=== PATIENT | female | born 1955 | race Caucasian/White ===

== ENCOUNTER 2024-01-20 11:16 | Inpatient (IN) | payer MEDICAID ==
[~2024-01-20] VITALS: Ht 154.9 cm; Wt 64.9 kg
[2024-01-20 11:23] VITALS: BP_SYST 93; PULSE 105; RESP 18; TEMP 98.3; O2SAT 95
[2024-01-20 11:49] LABS: BILIRUBIN,URINE NEGATIVE (NEGATIVE); BLOOD, URINE 2+ (NEGATIVE); COLOR,URINE YELLOW (YELLOW); GLUCOSE,URINE NEGATIVE (NEGATIVE); KETONES,URINE TRACE (NEGATIVE); LEUKOCYTE ESTERASE ,URINE 1+ (NEGATIVE); NITRITE, URINE NEGATIVE (NEGATIVE); PROTEIN URINE 2+ (NEGATIVE); UROBILINOGEN,URINE 0.2 (0.2-1.0)
[2024-01-20 11:50] LABS: CLARITY/URINE SLIGHTLY HAZY (CLEAR)
[2024-01-20] MEDS: NACL 0.9% 1,000 ML IV ONE ×2 (11:50→15:18)
[2024-01-20 11:53] LABS: BASOPHILS % (AUTO) 0.1 % (0.0-2.0); EOSINOPHILS # (AUTO) 0.1 K/uL (0.0-0.4); EOSINOPHILS % (AUTO) 0.5 % (0.0-4.0); HEMATOCRIT 34.7 % (36-48); HEMOGLOBIN 11.9 g/dL (12.0-16.0); LYMPHOCYTES # (AUTO) 0.7 K/uL (1.0-5.5); LYMPHOCYTES % (AUTO) 6.3 % (20.5-51.5); MEAN CORPUSCULAR HEMOGLOBIN 30 pg (27-31); MEAN CORPUSCULAR HGB CONC 34 % (32-36); MEAN CORPUSCULAR VOLUME 88 fL (79.0-98.0); MONOCYTES # (AUTO) 0.8 K/uL (0.0-1.0); NEUTROPHILS # (AUTO) 10.3 K/uL (1.8-7.7); NEUTROPHILS % (AUTO) 86.1 % (40.0-70.0); PLATELET COUNT (AUTO) 143 K/uL (130-430); RED BLOOD CELL COUNT(AUTO) 3.93 MIL/uL (4.2-6.2); RED CELL DISTRIBUTION WIDTH 15.7 % (9.0-15.0); WHITE BLOOD COUNT (AUTO) 11.9 K/uL (4.8-10.8)
[2024-01-20] MEDS: MORPHINE 2 MG/ML INJ. SYRINGE IVP ONE (11:53)
[2024-01-20] MEDS: ONDANSETRON HCL 4 MG/2 ML VIAL IVP ONE (11:54)
[2024-01-20 12:11] LABS: BACTERIA,URINE FEW /HPF (None Seen); URINE AMORPHOUS URATE 1+ /HPF (None Seen)
[2024-01-20 12:12] LABS: FINE GRANULAR CASTS,URINE 0-1 /LPF (None Seen)
[2024-01-20 12:25] LABS: ALBUMIN 2.4 g/dL (3.4-4.8); BILIRUBIN,DIRECT 0.5 mg/dL (0.0-0.3); CALCIUM 8.6 mg/dL (8.4-11.0); CREATININE 3.4 mg/dL (0.55-1.30); POTASSIUM 3.4 mmol/L (3.5-5.1); TOTAL BILIRUBIN 0.9 mg/dL (0.0-1.0); TOTAL PROTEIN, SERUM 6.6 g/dL (6.4-8.3)
[2024-01-20] MEDS ORDERED: cefTRIAXone 1 GM VIAL ONE ×2 (13:34)
[2024-01-20] MEDS: cefTRIAXone 1 GM in D5W 50 ML IV ONE (13:55)
[2024-01-20] MEDS ORDERED: OMEP20CA15 PO (14:43)
[2024-01-20] MEDS ORDERED: ONDANSETRON HCL 4 MG/2 ML VIAL IVP PRN (15:00)
[2024-01-20] MEDS: PANTOPRAZOLE SODIUM 40 MG/VIAL (PROTONIX) IVP ONE (15:42)
[2024-01-20] MEDS: ACETAMINOPHEN 650 MG/20.3 ML UDC PO PRN (17:43)
[2024-01-20 17:53] LABS: CALCIUM 8.7 mg/dL (8.4-11.0); CREATININE 3.04 mg/dL (0.55-1.30); POTASSIUM 3.6 mmol/L (3.5-5.1)
[2024-01-20] MEDS: NACL 0.9% 1,000 ML IV SCH (18:30)
[2024-01-21] VITALS (8 sets, daily range): BP systolic 120–151; PULSE 85–100; RESP 16–20; TEMP 97–100; O2SAT 95–99
[2024-01-21 06:32] LABS: BASOPHILS % (AUTO) 0.1 % (0.0-2.0); EOSINOPHILS # (AUTO) 0.1 K/uL (0.0-0.4); EOSINOPHILS % (AUTO) 1.3 % (0.0-4.0); HEMATOCRIT 29.5 % (36-48); HEMOGLOBIN 9.9 g/dL (12.0-16.0); LYMPHOCYTES # (AUTO) 0.9 K/uL (1.0-5.5); LYMPHOCYTES % (AUTO) 10.1 % (20.5-51.5); MEAN CORPUSCULAR HEMOGLOBIN 30 pg (27-31); MEAN CORPUSCULAR HGB CONC 34 % (32-36); MEAN CORPUSCULAR VOLUME 90 fL (79.0-98.0); MONOCYTES % (AUTO) 11.1 % (1.7-9.3); NEUTROPHILS % (AUTO) 77.4 % (40.0-70.0); PLATELET COUNT (AUTO) 130 K/uL (130-430); RED BLOOD CELL COUNT(AUTO) 3.27 MIL/uL (4.2-6.2); RED CELL DISTRIBUTION WIDTH 15.8 % (9.0-15.0); WHITE BLOOD COUNT (AUTO) 9.1 K/uL (4.8-10.8)
[2024-01-21 06:34] LABS: ALBUMIN 1.7 g/dL (3.4-4.8); CALCIUM 7.8 mg/dL (8.4-11.0); CREATININE 2.35 mg/dL (0.55-1.30); POTASSIUM 3.5 mmol/L (3.5-5.1); TOTAL BILIRUBIN 0.6 mg/dL (0.0-1.0); TOTAL PROTEIN, SERUM 4.9 g/dL (6.4-8.3)
[2024-01-21] MEDS: PANTOPRAZOLE SODIUM 40 MG/VIAL (PROTONIX) IVP SCH (09:41)
[2024-01-21] MEDS: cefTRIAXone 1 GM in D5W 50 ML IV SCH (09:47)
[2024-01-21] MEDS: LR 1,000 ML IV SCH (15:50)
[2024-01-22 00:12] VITALS: BP_SYST 134; PULSE 81; RESP 16; TEMP 97.7; O2SAT 97
[2024-01-22 06:56] LABS: EOSINOPHILS % (AUTO) 0.4 % (0.0-4.0); HEMATOCRIT 29.2 % (36-48); HEMOGLOBIN 9.9 g/dL (12.0-16.0); LYMPHOCYTES # (AUTO) 1.3 K/uL (1.0-5.5); LYMPHOCYTES % (AUTO) 13.9 % (20.5-51.5); MEAN CORPUSCULAR HEMOGLOBIN 30 pg (27-31); MEAN CORPUSCULAR HGB CONC 34 % (32-36); MEAN CORPUSCULAR VOLUME 90 fL (79.0-98.0); MONOCYTES # (AUTO) 1.3 K/uL (0.0-1.0); MONOCYTES % (AUTO) 13.4 % (1.7-9.3); NEUTROPHILS # (AUTO) 6.9 K/uL (1.8-7.7); NEUTROPHILS % (AUTO) 72.3 % (40.0-70.0); PLATELET COUNT (AUTO) 140 K/uL (130-430); RED BLOOD CELL COUNT(AUTO) 3.26 MIL/uL (4.2-6.2); RED CELL DISTRIBUTION WIDTH 16.4 % (9.0-15.0); WHITE BLOOD COUNT (AUTO) 9.5 K/uL (4.8-10.8)
[2024-01-22 07:07] LABS: ALBUMIN 1.6 g/dL (3.4-4.8); CALCIUM 8.6 mg/dL (8.4-11.0); CREATININE 1.78 mg/dL (0.55-1.30); POTASSIUM 3.2 mmol/L (3.5-5.1); TOTAL BILIRUBIN 0.6 mg/dL (0.0-1.0); TOTAL PROTEIN, SERUM 5.1 g/dL (6.4-8.3)
[2024-01-22 08:57] VITALS: BP_SYST 115; PULSE 72; RESP 18; TEMP 101; O2SAT 94
[2024-01-22 08:58] VITALS: O2SAT 94
[2024-01-22 12:33] VITALS: BP_SYST 126; PULSE 73; RESP 18; TEMP 98; O2SAT 98
[2024-01-22] MEDS: POTASSIUM CHLORIDE 20 MEQ TABLET.ER PO ONE (16:11)
[2024-01-22 16:40] VITALS: BP_SYST 137; PULSE 65; RESP 16; TEMP 98.6; O2SAT 94
[2024-01-22 20:00] VITALS: BP_SYST 136; PULSE 88; RESP 18; TEMP 99.1; O2SAT 96
[2024-01-23 00:20] VITALS: BP_SYST 117; PULSE 68; RESP 16; TEMP 99.5; O2SAT 93
[2024-01-23 05:27] LABS: BASOPHILS % (AUTO) 0.2 % (0.0-2.0); EOSINOPHILS # (AUTO) 0.1 K/uL (0.0-0.4); EOSINOPHILS % (AUTO) 1.3 % (0.0-4.0); HEMATOCRIT 27.7 % (36-48); HEMOGLOBIN 9.5 g/dL (12.0-16.0); LYMPHOCYTES # (AUTO) 1.5 K/uL (1.0-5.5); LYMPHOCYTES % (AUTO) 16.7 % (20.5-51.5); MEAN CORPUSCULAR HEMOGLOBIN 31 pg (27-31); MEAN CORPUSCULAR HGB CONC 34 % (32-36); MEAN CORPUSCULAR VOLUME 89 fL (79.0-98.0); MONOCYTES # (AUTO) 1.1 K/uL (0.0-1.0); MONOCYTES % (AUTO) 12.1 % (1.7-9.3); NEUTROPHILS # (AUTO) 6.4 K/uL (1.8-7.7); NEUTROPHILS % (AUTO) 69.7 % (40.0-70.0); PLATELET COUNT (AUTO) 168 K/uL (130-430); RED BLOOD CELL COUNT(AUTO) 3.11 MIL/uL (4.2-6.2); WHITE BLOOD COUNT (AUTO) 9.2 K/uL (4.8-10.8)
[2024-01-23 05:51] LABS: CALCIUM 8.4 mg/dL (8.4-11.0); CREATININE 1.46 mg/dL (0.55-1.30); POTASSIUM 3.5 mmol/L (3.5-5.1)
[2024-01-23 07:45] VITALS: BP_SYST 144; PULSE 65; RESP 15; TEMP 99.6; O2SAT 94
[2024-01-23 10:00] VITALS: O2SAT 95
[2024-01-23 11:53] VITALS: BP_SYST 139; PULSE 62; RESP 18; TEMP 97.5; O2SAT 96
[2024-01-23 16:11] VITALS: BP_SYST 137; PULSE 66; RESP 18; TEMP 98.3; O2SAT 96
[2024-01-23] MEDS ORDERED: CEPH-548 PO (16:32)
[2024-01-23] MEDS ORDERED: LACT1TAB14 PO (16:34)
[2024-01-23] MEDS ORDERED: MULT-952 PO (16:35)
[2024-01-23 16:53] VITALS: BP_SYST 138; PULSE 60; RESP 15; TEMP 97.5; O2SAT 100
== END 2024-01-23 17:40 | disposition home or self-care (01) | DRG 720 ==
LOC: SED 11:16 → SMU 13:46 → STU 17:19 → SMU 01-21 14:51
PROVIDERS: ADMIT Internal Medicine; ATTEND Internal Medicine
DX: A41.9 Sepsis, unspecified organism (principal); N17.0 Acute kidney failure with tubular necrosis; E43 Unspecified severe protein-calorie malnutrition; N10 Acute pyelonephritis; E87.1 Hypo-osmolality and hyponatremia; E87.6 Hypokalemia; B96.20 Unspecified Escherichia coli [E. coli] as the cause of diseases classified elsewhere; Z79.899 Other long term (current) drug therapy; Z68.27 Body mass index [BMI] 27.0-27.9, adult
CPT/HCPCS: 36415; 80048; 80053; 80076; 81000; 81001; 81015; 83690; 85025; 87040; 87086; 87186; 99285; C9113; G0378; J0696; J1956; J2270; J2405; J7060